=== PATIENT | male | born 1965 | race Asian ===

== ENCOUNTER 2025-07-01 14:46 | Outpatient (CLI) | payer BC | END 2025-07-01 14:47 | disposition home or self-care (01) | LOC: BICMAMMO 14:46 | PROVIDERS: ATTEND Family Medicine | DX: Z13.820 Encounter for screening for osteoporosis (principal); M85.88 Other specified disorders of bone density and structure, other site; Z82.62 Family history of osteoporosis | CPT/HCPCS: 77080 ==

== ENCOUNTER 2025-07-03 09:45 | Outpatient (CLI) | payer BC | END 2025-07-03 09:46 | disposition home or self-care (01) | LOC: ULT 09:45 | PROVIDERS: ATTEND Family Medicine | DX: K76.0 Fatty (change of) liver, not elsewhere classified (principal) | CPT/HCPCS: 76700 ==